=== PATIENT | female | born 1935 | race Caucasian/White ===

== ENCOUNTER 2021-06-21 17:15 | Inpatient (IN) | payer MEDICARE, MEDICAID ==
[~2021-06-21] VITALS: Ht 172.7 cm; Wt 73.0 kg
[~2021-06-21 17:15] MED LIST: ALEN70TA2 PO; ALPR0.5T7 PO; ASCO100C2 PO; CELE200C PO; FELO5TAB3 PO; GABA800T87 PO; MERC50TA PO; METF-371 PO; MORP60TA PO; MULTTAB5 PO; PAROXETINE PO; PREDPOW63 PO; ZOLP10TA PO; [UNRECOGNIZED DRUG - CODE] PO
[2021-06-21] MEDS ORDERED: MIDAZOLAM HCL 5 MG/ML-1ML VIAL ONE (17:20)
[2021-06-21] MEDS ORDERED: SUCCINYLCHOLINE CHLORIDE 20 MG/ML 10ML VIAL IV ONE ×2 (17:20→19:00)
[2021-06-21] MEDS ORDERED: ETOMIDATE (2MG/ML) 20ML VIAL IV ONE ×2 (17:20→17:30)
[2021-06-21] MEDS ORDERED: MIDAZOLAM DRIP 50 mg/50mL 50 ML IV ONE (17:22)
[2021-06-21] MEDS ORDERED: GLUCAGON HYDROCHLORIDE (RDNA) 1 MG VIAL ONE (17:40)
[2021-06-21] MEDS ORDERED: DOPamine 1600MCG/ML D5W 250 ML IV ONE (17:41)
[2021-06-21] MEDS ORDERED: GLUCAGON HYDROCHLORIDE (RDNA) 1 MG VIAL IV ONE (17:45)
[2021-06-21] MEDS ORDERED: ATROPINE SULFATE 1 MG/1 ML VIAL ONE (17:47)
[2021-06-21] MEDS ORDERED: SODIUM BICARBONATE 8.4% INJ 50ML SYRINGE ONE ×2 (17:47→17:56)
[2021-06-21] MEDS: MIDAZOLAM DRIP 50 mg/50mL 50 ML IV SCH (17:49)
[2021-06-21] MEDS ORDERED: ATROPINE SULF 1 MG/10ml SYR IV ONE (18:00)
[2021-06-21] MEDS ORDERED: SODIUM BICARBONATE 8.4 % INJ 50ML VIAL IV ONE ×2 (18:00)
[2021-06-21 18:04] LABS: Basophils # (auto) 0.1 10 ^3/uL (0-0.2); Eosinophils # (auto) 0 10 ^3/uL (0-0.8); Eosinophils % (auto) 0.2 % (0.0-7.0); Monocytes # (auto) 0.6 10 ^3/uL (0-1.3)
[2021-06-21 18:06] LABS: Basophils % (auto) 0.8 % (0.0-2.0); Hematocrit 43.5 % (36.0-46.0); Hemoglobin 13.9 g/dL (12.2-16.2); Lymphocytes # (auto) 0.9 10 ^3/uL (0.4-5.4); Lymphocytes % (auto) 8.1 % (10.0-50.0); Mean Corpuscular Hgb Conc. 31.9 g/dL (32.0-36.0); Mean Corpuscular Volume 100.5 fL (80.0-100.0); Monocytes % (auto) 5.9 % (0.0-12.0); Neutrophils # (auto) 9.1 10 ^3/uL (1.6-8.6); Nucleated Red Blood Cells % 0.1 %; Red Blood Cells 4.33 10^6/uL (4.0-5.20); Red Cell Distribution Width 16.3 % (11.8-14.3); White Blood Cell 10.7 10^3/uL (4.4-10.8)
[2021-06-21 18:19] LABS: Albumin 2.8 g/dL (3.4-5.0); Anion Gap 14 (5-15); Blood Urea Nitrogen 34 mg/dL (7-18); Calcium 9.4 mg/dL (8.5-10.1); Carbon Dioxide 15 mmol/L (21-32); Chloride 100 mmol/L (98-107); Magnesium 2.2 mg/dL (1.6-2.6); Sodium 129 mmol/L (136-145)
[2021-06-21 18:24] LABS: Alanine Aminotransferase 48 U/L (13-56); Aspartate Aminotransferase 49 U/L (15-37); Bilirubin, Total 0.4 mg/dL (0.2-1.0); Blood Alcohol < 3.0 mg/dL (0-5); GFR African American 42 mL/min; GFR Non-African American 35 mL/min; Total Protein 7.4 g/dL (6.4-8.2)
[2021-06-21 18:28] LABS: Alkaline Phosphatase 123 U/L (45-117)
[2021-06-21 18:59] LABS: Amphetamine Screen, Urine NEGATIVE (NEGATIVE); Barbiturate Scree,Urine NEGATIVE (NEGATIVE); Benzodiazephine Screen, Urine POSITIVE (NEGATIVE); Cannabinoid Screen, Urine NEGATIVE (NEGATIVE); Cocaine Screen, Urine NEGATIVE (NEGATIVE); Opiate Scree,Urine NEGATIVE (NEGATIVE); Phencyclidine Screen, Urine NEGATIVE (NEGATIVE)
[2021-06-21 19:01] LABS: Urine Bacteria NONE SEEN /hpf (None Seen); Urine Blood 2+ /uL (Negative); Urine Mucus FEW (None Seen); Urine WBC 3588 /hpf (0 - 5); Urine WBC Clumps PRESENT /hpf (None Seen)
[2021-06-21] MEDS: DOPamine 1600MCG/ML D5W 250 ML IV SCH (19:20)
[2021-06-21 19:33] LABS: BUN/Creatinine Ratio 22.4; Glucose 869 mg/dL (74-106); Potassium 7.6 mmol/L (3.5-5.1)
[2021-06-21] MEDS ORDERED: CALCIUM GLUC 1,000mg/50ml-NS 50 ML IV ONE (19:45)
[2021-06-21] MEDS ORDERED: InsuLIN REG 1unit/0.01ml Soln (100units/ml) IV ONE (19:45)
[2021-06-21] MEDS ORDERED: SODIUM ZIRCONIUM CYCL 10 GM PAK PO ONE (19:45)
[2021-06-21] MEDS ORDERED: VANCOMYCIN 1GM/250ML 250 ML IV ONE (19:45)
[2021-06-21] MEDS ORDERED: DEXTROSE (50%) 50ML SYRG IV ONE (19:45)
[2021-06-21] MEDS ORDERED: SODIUM BICARBONATE 8.4% INJ 50ML SYRINGE IV ONE (19:45)
[2021-06-21] MEDS ORDERED: SODIUM CHLORIDE 0.9% 1,000 ML IV ONE (19:45)
[2021-06-21] MEDS ORDERED: PIPERACILLIN-TAZOB 3.375GM 100 ML IV ONE (19:45)
[2021-06-21 19:49] VITALS: BP 117/63
[2021-06-21 20:06] VITALS: BP 108/63
[2021-06-21 20:17] LABS: INR 1.33 (0.9-1.15); Partial Thromboplastin Time 24.4 sec (23.6-33.0)
[2021-06-21 20:29] VITALS: BP 108/63
[2021-06-21] MEDS ORDERED: MEROPENEM 1GM IVPB 100 ML IV ONE ×2 (21:00)
[2021-06-21 22:19] VITALS: BP 108/63
[2021-06-21] MEDS ORDERED: ONDANSETRON HCL 4 MG/2 ML VIAL IV PRN (22:45)
[2021-06-21] MEDS ORDERED: DEXTROSE (50%) 50ML SYRG IV PRN (22:45)
[2021-06-21] MEDS ORDERED: VANCOMYCIN PER PHARMACY 0 MG IV SCH (22:45)
[2021-06-21] MEDS ORDERED: MORPHINE SULFATE INJECTION 2 MG/ML SYRG IV PRN (22:45)
[2021-06-21] MEDS ORDERED: NITROGLYCERIN 0.4 MG SL TAB SL PRN (22:45)
[2021-06-21] MEDS ORDERED: ALBUMIN 25% 50 ML IV ONE (22:45)
[2021-06-21 22:59] LABS: Calcium 9.2 mg/dL (8.5-10.1); Potassium 5.5 mmol/L (3.5-5.1)
[2021-06-21 23:08] LABS: BUN/Creatinine Ratio 22.8
[2021-06-22] VITALS (58 sets, daily range): BP systolic 56–167; BP diastolic 24–88
[2021-06-22] MEDS: ACCU-CHEK COMFORT CURVE STRIP VI SCH ×12 (00:13→22:28)
[2021-06-22] MEDS: InsuLIN REG 1unit/0.01ml Soln (100units/ml) SC SCH ×7 (00:17→20:22)
[2021-06-22] MEDS: SODIUM CHLORIDE 0.9% 1,000 ML IV SCH ×3 (00:22→23:00)
[2021-06-22] MEDS: DOPamine 1600MCG/ML D5W 250 ML IV SCH ×3 (03:12→22:20)
[2021-06-22] MEDS: MIDAZOLAM DRIP 50 mg/50mL 50 ML IV SCH ×3 (03:55→21:00)
[2021-06-22] MEDS ORDERED: DEXTROSE (50%) 50ML SYRG IV PRN (04:30)
[2021-06-22] MEDS: INSULIN LANTUS (GLARGINE) 1 /0.01ml (100units/ml) SC SCH ×4 (04:36→22:27)
[2021-06-22 04:44] LABS: Basophils # (auto) 0.1 10 ^3/uL (0-0.2); Basophils % (auto) 0.6 % (0.0-2.0); Eosinophils # (auto) 0 10 ^3/uL (0-0.8); Hematocrit 41.2 % (36.0-46.0); Lymphocytes # (auto) 0.6 10 ^3/uL (0.4-5.4); Lymphocytes % (auto) 4.7 % (10.0-50.0); Mean Corpuscular Hemoglobin 32.8 pg (28.0-32.0); Mean Corpuscular Hgb Conc. 33.9 g/dL (32.0-36.0); Mean Corpuscular Volume 96.6 fL (80.0-100.0); Monocytes # (auto) 1.1 10 ^3/uL (0-1.3); Monocytes % (auto) 8.4 % (0.0-12.0); Neutrophils # (auto) 10.9 10 ^3/uL (1.6-8.6); Neutrophils % (auto) 86.3 % (37.0-80.0); Red Blood Cells 4.26 10^6/uL (4.0-5.20); Red Cell Distribution Width 15.6 % (11.8-14.3); White Blood Cell 12.6 10^3/uL (4.4-10.8)
[2021-06-22 04:57] LABS: Lactic Acid w/Reflex 4.1 mmol/L (0.4-2.0)
[2021-06-22 05:15] LABS: BUN/Creatinine Ratio 23.8; Bilirubin, Total 0.4 mg/dL (0.2-1.0); Calcium 9.9 mg/dL (8.5-10.1)
[2021-06-22] MEDS ORDERED: MEROPENEM 1GM IVPB 100 ML IV SCH (06:00)
[2021-06-22] MEDS ORDERED: INSULIN LANTUS (GLARGINE) 1 /0.01ml (100units/ml) SC SCH (07:00)
[2021-06-22] MEDS: FUROSEMIDE 20 MG/2 ML VIAL IV SCH (11:10)
[2021-06-22] MEDS: FAMOTIDINE (10MG/ML) 2ML VL IV SCH (11:10)
[2021-06-22] MEDS: HEPARIN SODIUM (PORCINE) 5000 UNITS/ML 1ML VIAL SC SCH ×2 (11:10→22:00)
[2021-06-22] MEDS: MEROPENEM 1GM IVPB 100 ML IV SCH (18:00)
[2021-06-22] MEDS ORDERED: NOREPINEPHRINE 8 MG/250ML KIT 250 ML IV ONE (20:28)
[2021-06-22] MEDS: PHENYLEPHRINE IV 250 ML IV SCH (20:45)
[2021-06-22] MEDS: NOREPINEPHRINE 8 MG/250ML KIT 250 ML IV SCH (20:45)
[2021-06-22] MEDS: VANCOMYCIN 750mg/250ml 250 ML IV SCH (22:00)
[2021-06-22] MEDS: NYSTATIN TOPICAL POWDER 15GM TOP SCH (22:27)
[2021-06-22] MEDS ORDERED: VANCOMYCIN 1GM/250ML 250 ML IV ONE (22:55)
[2021-06-23] VITALS (86 sets, daily range): BP systolic 29–158; BP diastolic 11–78
[2021-06-23] MEDS: DOPamine 1600MCG/ML D5W 250 ML IV SCH ×2 (02:00→20:00)
[2021-06-23] MEDS: MIDAZOLAM DRIP 50 mg/50mL 50 ML IV SCH ×3 (02:58→20:00)
[2021-06-23] MEDS: InsuLIN REG 1unit/0.01ml Soln (100units/ml) SC SCH ×5 (04:00→17:46)
[2021-06-23] MEDS: ACETAMINOPHEN 650 MG RECT SUPP PR PRN ×2 (04:20→15:19)
[2021-06-23] MEDS: PHENYLEPHRINE IV 250 ML IV SCH ×2 (05:05→13:25)
[2021-06-23] MEDS: MEROPENEM 1GM IVPB 100 ML IV SCH ×2 (06:27→18:00)
[2021-06-23] MEDS: INSULIN LANTUS (GLARGINE) 1 /0.01ml (100units/ml) SC SCH ×3 (06:28→22:00)
[2021-06-23 11:05] LABS: Basophils # (auto) 0.1 10 ^3/uL (0-0.2); Basophils % (auto) 0.5 % (0.0-2.0); Eosinophils # (auto) 0 10 ^3/uL (0-0.8); Eosinophils % (auto) 0.3 % (0.0-7.0); Hematocrit 43.6 % (36.0-46.0); Hemoglobin 15.1 g/dL (12.2-16.2); Lymphocytes # (auto) 0.7 10 ^3/uL (0.4-5.4); Lymphocytes % (auto) 7.2 % (10.0-50.0); Mean Corpuscular Hemoglobin 32.6 pg (28.0-32.0); Mean Corpuscular Hgb Conc. 34.5 g/dL (32.0-36.0); Mean Corpuscular Volume 94.5 fL (80.0-100.0); Monocytes # (auto) 0.8 10 ^3/uL (0-1.3); Monocytes % (auto) 7.4 % (0.0-12.0); Neutrophils # (auto) 8.7 10 ^3/uL (1.6-8.6); Neutrophils % (auto) 84.6 % (37.0-80.0); Red Blood Cells 4.61 10^6/uL (4.0-5.20); Red Cell Distribution Width 15.5 % (11.8-14.3); White Blood Cell 10.3 10^3/uL (4.4-10.8)
[2021-06-23 11:23] LABS: BUN/Creatinine Ratio 35.3; Calcium 8.9 mg/dL (8.5-10.1); Potassium 4.5 mmol/L (3.5-5.1)
[2021-06-23] MEDS: FUROSEMIDE 20 MG/2 ML VIAL IV SCH (11:58)
[2021-06-23] MEDS: FAMOTIDINE (10MG/ML) 2ML VL IV SCH (11:58)
[2021-06-23] MEDS: NYSTATIN TOPICAL POWDER 15GM TOP SCH ×2 (11:59→22:00)
[2021-06-23] MEDS: HEPARIN SODIUM (PORCINE) 5000 UNITS/ML 1ML VIAL SC SCH ×2 (12:00→22:00)
[2021-06-23] MEDS ORDERED: InsuLIN REG 1unit/0.01ml Soln (100units/ml) SC SCH (12:30)
[2021-06-23] MEDS ORDERED: DEXTROSE (50%) 50ML SYRG IV PRN (15:15)
[2021-06-23] MEDS: ACCU-CHEK COMFORT CURVE STRIP VI SCH (17:46)
[2021-06-23] MEDS: VANCOMYCIN 750mg/250ml 250 ML IV SCH (22:00)
[2021-06-24] VITALS (101 sets, daily range): BP systolic 71–130; BP diastolic 24–99
[2021-06-24] MEDS: ACCU-CHEK COMFORT CURVE STRIP VI SCH ×4 (00:18→18:26)
[2021-06-24] MEDS: InsuLIN REG 1unit/0.01ml Soln (100units/ml) SC SCH ×4 (00:19→18:26)
[2021-06-24 05:31] LABS: Basophils # (auto) 0.1 10 ^3/uL (0-0.2); Basophils % (auto) 0.9 % (0.0-2.0); Eosinophils # (auto) 0.1 10 ^3/uL (0-0.8); Eosinophils % (auto) 0.9 % (0.0-7.0); Hematocrit 37.5 % (36.0-46.0); Hemoglobin 13.1 g/dL (12.2-16.2); Lymphocytes # (auto) 0.9 10 ^3/uL (0.4-5.4); Lymphocytes % (auto) 11.5 % (10.0-50.0); Mean Corpuscular Hemoglobin 32.5 pg (28.0-32.0); Mean Corpuscular Hgb Conc. 34.8 g/dL (32.0-36.0); Mean Corpuscular Volume 93.3 fL (80.0-100.0); Monocytes # (auto) 0.4 10 ^3/uL (0-1.3); Monocytes % (auto) 5.2 % (0.0-12.0); Neutrophils # (auto) 6.2 10 ^3/uL (1.6-8.6); Neutrophils % (auto) 81.5 % (37.0-80.0); Nucleated Red Blood Cells % 0.1 %; Red Blood Cells 4.03 10^6/uL (4.0-5.20); Red Cell Distribution Width 15.1 % (11.8-14.3); White Blood Cell 7.6 10^3/uL (4.4-10.8)
[2021-06-24 05:58] LABS: Potassium 3.4 mmol/L (3.5-5.1)
[2021-06-24] MEDS: MEROPENEM 1GM IVPB 100 ML IV SCH (06:00)
[2021-06-24 06:03] LABS: Calcium 8.3 mg/dL (8.5-10.1)
[2021-06-24] MEDS: INSULIN LANTUS (GLARGINE) 1 /0.01ml (100units/ml) SC SCH ×2 (07:00→22:00)
[2021-06-24] MEDS: DOPamine 1600MCG/ML D5W 250 ML IV SCH (07:25)
[2021-06-24] MEDS: NOREPINEPHRINE 8 MG/250ML KIT 250 ML IV SCH (08:32)
[2021-06-24] MEDS: PHENYLEPHRINE IV 250 ML IV SCH (08:46)
[2021-06-24] MEDS: SODIUM CHLORIDE 0.9% 1,000 ML IV SCH ×2 (08:46→10:01)
[2021-06-24] MEDS: FUROSEMIDE 20 MG/2 ML VIAL IV SCH (09:31)
[2021-06-24] MEDS: FAMOTIDINE (10MG/ML) 2ML VL IV SCH (09:31)
[2021-06-24] MEDS: HEPARIN SODIUM (PORCINE) 5000 UNITS/ML 1ML VIAL SC SCH ×2 (09:32→22:00)
[2021-06-24] MEDS: NYSTATIN TOPICAL POWDER 15GM TOP SCH ×2 (09:33→22:00)
[2021-06-24] MEDS ORDERED: POTASSIUM CHL 20MEQ/50ML 50 ML IV ONE (10:00)
[2021-06-24] MEDS ORDERED: Glucerna 1.2 Cal 1Liter BOTTLE GT SCH (14:00)
[2021-06-24] MEDS ORDERED: CRAN450T PO (15:32)
[2021-06-24] MEDS ORDERED: VITA400C49 PO (15:32)
[2021-06-24] MEDS ORDERED: ZINC220C8 PO (15:32)
[2021-06-24] MEDS ORDERED: PERCOT PO (15:32)
[2021-06-24] MEDS ORDERED: LISI-716 PO (15:32)
[2021-06-24] MEDS ORDERED: SITA100T7 PO (15:32)
[2021-06-24] MEDS ORDERED: POLYSOL EACHEYE (15:32)
[2021-06-24] MEDS ORDERED: ASCO500T11 PO (15:32)
[2021-06-24] MEDS ORDERED: GLIP10TA9 PO (15:32)
[2021-06-24] MEDS ORDERED: LACT1CAP14 PO (15:32)
[2021-06-24] MEDS ORDERED: WARF5TAB71 PO (15:32)
[2021-06-24] MEDS ORDERED: TETR0.0542 EACHEYE (15:32)
[2021-06-24] MEDS: VANCOMYCIN 1GM/250ML 250 ML IV SCH (22:56)
[2021-06-25] VITALS (95 sets, daily range): BP systolic 92–163; BP diastolic 36–100
[2021-06-25] MEDS: InsuLIN REG 1unit/0.01ml Soln (100units/ml) SC SCH ×5 (00:18→23:43)
[2021-06-25] MEDS: ACCU-CHEK COMFORT CURVE STRIP VI SCH ×5 (00:18→23:44)
[2021-06-25] MEDS: DOPamine 1600MCG/ML D5W 250 ML IV SCH ×2 (01:30→14:46)
[2021-06-25 04:21] LABS: Basophils # (auto) 0 10 ^3/uL (0-0.2); Basophils % (auto) 0.4 % (0.0-2.0); Eosinophils # (auto) 0.1 10 ^3/uL (0-0.8); Eosinophils % (auto) 0.7 % (0.0-7.0); Hematocrit 37.2 % (36.0-46.0); Hemoglobin 12.8 g/dL (12.2-16.2); Lymphocytes # (auto) 1.1 10 ^3/uL (0.4-5.4); Lymphocytes % (auto) 12.3 % (10.0-50.0); Mean Corpuscular Hemoglobin 32.1 pg (28.0-32.0); Mean Corpuscular Hgb Conc. 34.4 g/dL (32.0-36.0); Mean Corpuscular Volume 93.2 fL (80.0-100.0); Monocytes # (auto) 0.6 10 ^3/uL (0-1.3); Monocytes % (auto) 6.6 % (0.0-12.0); Neutrophils # (auto) 6.9 10 ^3/uL (1.6-8.6); Red Blood Cells 3.99 10^6/uL (4.0-5.20); Red Cell Distribution Width 15.4 % (11.8-14.3); White Blood Cell 8.6 10^3/uL (4.4-10.8)
[2021-06-25 04:36] LABS: Calcium 8.6 mg/dL (8.5-10.1); Potassium 3.4 mmol/L (3.5-5.1)
[2021-06-25 04:38] LABS: BUN/Creatinine Ratio 32.5
[2021-06-25] MEDS: INSULIN LANTUS (GLARGINE) 1 /0.01ml (100units/ml) SC SCH ×2 (07:03→22:00)
[2021-06-25] MEDS: cefTRIAXone 1GM/50ML D5W 50 ML IV SCH (09:44)
[2021-06-25] MEDS: NYSTATIN TOPICAL POWDER 15GM TOP SCH ×2 (10:53→21:54)
[2021-06-25] MEDS: FAMOTIDINE (10MG/ML) 2ML VL IV SCH (11:02)
[2021-06-25] MEDS: HEPARIN SODIUM (PORCINE) 5000 UNITS/ML 1ML VIAL SC SCH ×2 (11:03→21:54)
[2021-06-25] MEDS ORDERED: EPINEPHrine HCL 0.5 ML NEB NEB ONE (14:30)
[2021-06-25] MEDS ORDERED: EPINEPHrine HCL 0.5 ML NEB ONE (14:32)
[2021-06-25] MEDS: MORPHINE SULFATE INJECTION 2 MG/ML SYRG IV PRN (19:25)
[2021-06-25] MEDS: VANCOMYCIN 1GM/250ML 250 ML IV SCH (21:53)
[2021-06-26] VITALS (20 sets, daily range): BP systolic 132–163; BP diastolic 42–90
[2021-06-26] MEDS: DOPamine 1600MCG/ML D5W 250 ML IV SCH (00:15)
[2021-06-26 04:32] LABS: Basophils # (auto) 0 10 ^3/uL (0-0.2); Basophils % (auto) 0.6 % (0.0-2.0); Eosinophils # (auto) 0 10 ^3/uL (0-0.8); Eosinophils % (auto) 0.6 % (0.0-7.0); Hematocrit 38.2 % (36.0-46.0); Hemoglobin 13.1 g/dL (12.2-16.2); Lymphocytes # (auto) 0.9 10 ^3/uL (0.4-5.4); Lymphocytes % (auto) 10.7 % (10.0-50.0); Mean Corpuscular Hgb Conc. 34.2 g/dL (32.0-36.0); Mean Corpuscular Volume 93.4 fL (80.0-100.0); Monocytes # (auto) 0.5 10 ^3/uL (0-1.3); Monocytes % (auto) 6.8 % (0.0-12.0); Neutrophils # (auto) 6.5 10 ^3/uL (1.6-8.6); Neutrophils % (auto) 81.3 % (37.0-80.0); Nucleated Red Blood Cells % 0.1 %; Red Blood Cells 4.09 10^6/uL (4.0-5.20); Red Cell Distribution Width 14.9 % (11.8-14.3)
[2021-06-26] MEDS: InsuLIN REG 1unit/0.01ml Soln (100units/ml) SC SCH ×4 (05:29→23:57)
[2021-06-26] MEDS: ACCU-CHEK COMFORT CURVE STRIP VI SCH ×4 (05:29→23:56)
[2021-06-26 05:46] LABS: Potassium 2.8 mmol/L (3.5-5.1)
[2021-06-26] MEDS: INSULIN LANTUS (GLARGINE) 1 /0.01ml (100units/ml) SC SCH (06:32)
[2021-06-26] MEDS: POTASSIUM CHL 20MEQ/50ML 50 ML IV SCH ×3 (06:55→11:52)
[2021-06-26] MEDS: FAMOTIDINE (10MG/ML) 2ML VL IV SCH (09:34)
[2021-06-26] MEDS: HEPARIN SODIUM (PORCINE) 5000 UNITS/ML 1ML VIAL SC SCH ×2 (09:34→22:25)
[2021-06-26] MEDS: NYSTATIN TOPICAL POWDER 15GM TOP SCH ×2 (09:35→22:26)
[2021-06-26] MEDS: cefTRIAXone 1GM/50ML D5W 50 ML IV SCH (09:40)
[2021-06-26] MEDS ORDERED: LISINOPRIL 10 MG TAB PO ONE (11:45)
[2021-06-26] MEDS ORDERED: ASPirin 81 mg TAB PO ONE (11:45)
[2021-06-26] MEDS: MORPHINE SULFATE INJECTION 2 MG/ML SYRG IV PRN (13:05)
[2021-06-26] MEDS: Glucerna Carbsteady SHAKE Vanilla 8oz PO SCH ×2 (14:25→18:00)
[2021-06-26] MEDS: VANCOMYCIN 1GM/250ML 250 ML IV SCH (22:24)
[2021-06-27 05:00] VITALS: BP 128/78
[2021-06-27 05:50] LABS: Basophils # (auto) 0 10 ^3/uL (0-0.2); Basophils % (auto) 0.5 % (0.0-2.0); Eosinophils # (auto) 0 10 ^3/uL (0-0.8); Eosinophils % (auto) 0.1 % (0.0-7.0); Hematocrit 40.6 % (36.0-46.0); Lymphocytes % (auto) 10.4 % (10.0-50.0); Mean Corpuscular Hemoglobin 32.4 pg (28.0-32.0); Mean Corpuscular Hgb Conc. 34.6 g/dL (32.0-36.0); Mean Corpuscular Volume 93.7 fL (80.0-100.0); Monocytes # (auto) 0.9 10 ^3/uL (0-1.3); Monocytes % (auto) 9.3 % (0.0-12.0); Neutrophils # (auto) 7.4 10 ^3/uL (1.6-8.6); Neutrophils % (auto) 79.7 % (37.0-80.0); Nucleated Red Blood Cells % 0.1 %; Red Blood Cells 4.33 10^6/uL (4.0-5.20); Red Cell Distribution Width 15.2 % (11.8-14.3); White Blood Cell 9.3 10^3/uL (4.4-10.8)
[2021-06-27 05:59] LABS: Potassium 3.1 mmol/L (3.5-5.1)
[2021-06-27 06:12] LABS: BUN/Creatinine Ratio 18.9; Calcium 9.5 mg/dL (8.5-10.1); Magnesium 1.8 mg/dL (1.6-2.6)
[2021-06-27] MEDS: ACCU-CHEK COMFORT CURVE STRIP VI SCH ×3 (06:36→18:08)
[2021-06-27] MEDS: InsuLIN REG 1unit/0.01ml Soln (100units/ml) SC SCH ×3 (06:42→18:08)
[2021-06-27] MEDS: Glucerna Carbsteady SHAKE Vanilla 8oz PO SCH ×3 (08:00→16:49)
[2021-06-27] MEDS: ASPirin 81 mg TAB PO SCH (08:44)
[2021-06-27] MEDS: FLORASTOR (S. BOULARDII) 250 MG CAP PO SCH (08:44)
[2021-06-27] MEDS: FAMOTIDINE (10MG/ML) 2ML VL IV SCH (08:44)
[2021-06-27] MEDS: cefTRIAXone 1GM/50ML D5W 50 ML IV SCH (08:44)
[2021-06-27] MEDS: LISINOPRIL 10 MG TAB PO SCH (08:46)
[2021-06-27] MEDS: HEPARIN SODIUM (PORCINE) 5000 UNITS/ML 1ML VIAL SC SCH (08:48)
[2021-06-27] MEDS: NYSTATIN TOPICAL POWDER 15GM TOP SCH ×2 (08:48→22:10)
[2021-06-27 09:00] VITALS: BP 148/70
[2021-06-27 12:49] VITALS: BP 133/71
[2021-06-27] MEDS ORDERED: POTASSIUM CHL 20 Meq TABLET PO ONE (15:00)
[2021-06-27] MEDS ORDERED: KETOROLAC TROMETH 30 MG/ML 1ML VIAL IV ONE (15:00)
[2021-06-27 16:35] VITALS: BP 158/63
[2021-06-27 17:00] LABS: INR 1.16 (0.9-1.15)
[2021-06-27] MEDS ORDERED: WARFARIN SODIUM 5 MG TAB PO ONE (18:30)
[2021-06-27 22:00] VITALS: BP 151/71
[2021-06-27] MEDS ORDERED: ENOXAPARIN SOD 80 MG/0.8ML SYRINGE SC SCH (22:00)
[2021-06-27] MEDS: VANCOMYCIN 1GM/250ML 250 ML IV SCH (22:09)
[2021-06-27] MEDS: MORPHINE SULFATE INJECTION 2 MG/ML SYRG IV PRN (23:50)
[2021-06-28] MEDS: ACCU-CHEK COMFORT CURVE STRIP VI SCH ×4 (00:17→17:23)
[2021-06-28 05:00] VITALS: BP 145/53
[2021-06-28] MEDS: InsuLIN REG 1unit/0.01ml Soln (100units/ml) SC SCH ×4 (06:00→17:23)
[2021-06-28 06:25] LABS: Basophils # (auto) 0 10 ^3/uL (0-0.2); Basophils % (auto) 0.5 % (0.0-2.0); Eosinophils # (auto) 0.1 10 ^3/uL (0-0.8); Eosinophils % (auto) 0.7 % (0.0-7.0); Hematocrit 35.3 % (36.0-46.0); Hemoglobin 12.3 g/dL (12.2-16.2); Lymphocytes # (auto) 1.1 10 ^3/uL (0.4-5.4); Lymphocytes % (auto) 14.3 % (10.0-50.0); Mean Corpuscular Hemoglobin 32.3 pg (28.0-32.0); Mean Corpuscular Hgb Conc. 34.8 g/dL (32.0-36.0); Mean Corpuscular Volume 92.9 fL (80.0-100.0); Monocytes # (auto) 0.8 10 ^3/uL (0-1.3); Monocytes % (auto) 11.2 % (0.0-12.0); Neutrophils # (auto) 5.5 10 ^3/uL (1.6-8.6); Neutrophils % (auto) 73.3 % (37.0-80.0); White Blood Cell 7.5 10^3/uL (4.4-10.8)
[2021-06-28 06:28] LABS: INR 1.2 (0.9-1.15)
[2021-06-28] MEDS: Glucerna Carbsteady SHAKE Vanilla 8oz PO SCH ×3 (08:00→17:23)
[2021-06-28 08:37] VITALS: BP 152/88
[2021-06-28] MEDS: cefTRIAXone 1GM/50ML D5W 50 ML IV SCH (10:25)
[2021-06-28] MEDS: LISINOPRIL 10 MG TAB PO SCH (10:25)
[2021-06-28] MEDS: FAMOTIDINE 20 MG TAB PO SCH (10:26)
[2021-06-28] MEDS: ASPirin 81 mg TAB PO SCH (10:26)
[2021-06-28] MEDS: FLORASTOR (S. BOULARDII) 250 MG CAP PO SCH (10:26)
[2021-06-28] MEDS: NYSTATIN TOPICAL POWDER 15GM TOP SCH ×2 (10:27→21:57)
[2021-06-28] MEDS: MORPHINE SULFATE INJECTION 2 MG/ML SYRG IV PRN (10:27)
[2021-06-28 13:00] VITALS: BP 156/77
[2021-06-28] MEDS ORDERED: MORPHINE SULFATE INJECTION 2 MG/ML SYRG IV PRN (14:45)
[2021-06-28 17:00] VITALS: BP 155/98
[2021-06-28] MEDS ORDERED: WARFARIN SODIUM 5 MG TAB PO ONE (17:00)
[2021-06-28] MEDS: VANCOMYCIN 1GM/250ML 250 ML IV SCH (21:57)
[2021-06-28 22:00] VITALS: BP 138/61
[2021-06-29] MEDS: ACCU-CHEK COMFORT CURVE STRIP VI SCH ×4 (00:05→17:49)
[2021-06-29] MEDS: InsuLIN REG 1unit/0.01ml Soln (100units/ml) SC SCH ×4 (00:06→17:50)
[2021-06-29 05:00] VITALS: BP 117/51
[2021-06-29 07:41] LABS: Basophils # (auto) 0.1 10 ^3/uL (0-0.2); Basophils % (auto) 1.3 % (0.0-2.0); Eosinophils # (auto) 0.1 10 ^3/uL (0-0.8); Eosinophils % (auto) 1.7 % (0.0-7.0); Hematocrit 36.2 % (36.0-46.0); Hemoglobin 12.3 g/dL (12.2-16.2); Lymphocytes # (auto) 0.9 10 ^3/uL (0.4-5.4); Mean Corpuscular Volume 94.2 fL (80.0-100.0); Monocytes # (auto) 0.6 10 ^3/uL (0-1.3); Monocytes % (auto) 8.8 % (0.0-12.0); Neutrophils # (auto) 5.4 10 ^3/uL (1.6-8.6); Neutrophils % (auto) 76.2 % (37.0-80.0); Nucleated Red Blood Cells % 0.1 %; Red Blood Cells 3.84 10^6/uL (4.0-5.20); Red Cell Distribution Width 15.2 % (11.8-14.3); White Blood Cell 7.1 10^3/uL (4.4-10.8)
[2021-06-29 07:58] LABS: INR 1.51 (0.9-1.15); Partial Thromboplastin Time 29.5 sec (23.6-33.0)
[2021-06-29 08:14] LABS: Calcium 9.1 mg/dL (8.5-10.1)
[2021-06-29 08:17] LABS: BUN/Creatinine Ratio 29.6
[2021-06-29 08:21] LABS: Potassium 2.9 mmol/L (3.5-5.1)
[2021-06-29 09:00] VITALS: BP 137/58
[2021-06-29] MEDS: Glucerna Carbsteady SHAKE Vanilla 8oz PO SCH ×3 (09:34→17:49)
[2021-06-29] MEDS: cefTRIAXone 1GM/50ML D5W 50 ML IV SCH (09:35)
[2021-06-29] MEDS: ASPirin 81 mg TAB PO SCH (09:35)
[2021-06-29] MEDS: FLORASTOR (S. BOULARDII) 250 MG CAP PO SCH (09:36)
[2021-06-29] MEDS: FAMOTIDINE 20 MG TAB PO SCH (09:37)
[2021-06-29] MEDS: LISINOPRIL 20 MG TAB PO SCH (09:37)
[2021-06-29] MEDS: POTASSIUM CHL 20MEQ/50ML 50 ML IV SCH ×3 (12:34→18:05)
[2021-06-29] MEDS: NYSTATIN TOPICAL POWDER 15GM TOP SCH ×2 (12:34→22:28)
[2021-06-29 12:53] VITALS: BP 143/69
[2021-06-29] MEDS ORDERED: POTASSIUM CHL 20MEQ/50ML 50 ML IV ONE (15:44)
[2021-06-29 16:45] VITALS: BP 124/44
[2021-06-29] MEDS ORDERED: WARFARIN SODIUM 5 MG TAB PO ONE (17:00)
[2021-06-29] MEDS: VANCOMYCIN 1GM/250ML 250 ML IV SCH (17:49)
[2021-06-29] MEDS: HYDROcodone-ACET 5/325MG TAB PO PRN (18:27)
[2021-06-29 21:20] VITALS: BP 105/44
[2021-06-30] MEDS: ACCU-CHEK COMFORT CURVE STRIP VI SCH ×4 (00:09→17:32)
[2021-06-30] MEDS: InsuLIN REG 1unit/0.01ml Soln (100units/ml) SC SCH ×4 (00:16→17:33)
[2021-06-30 05:36] VITALS: BP 141/61
[2021-06-30 07:03] LABS: Basophils # (auto) 0.1 10 ^3/uL (0-0.2); Eosinophils # (auto) 0.2 10 ^3/uL (0-0.8); Eosinophils % (auto) 2.8 % (0.0-7.0); Hematocrit 36.1 % (36.0-46.0); Hemoglobin 12.2 g/dL (12.2-16.2); Lymphocytes # (auto) 1.2 10 ^3/uL (0.4-5.4); Lymphocytes % (auto) 20.8 % (10.0-50.0); Mean Corpuscular Hemoglobin 31.6 pg (28.0-32.0); Mean Corpuscular Hgb Conc. 33.8 g/dL (32.0-36.0); Mean Corpuscular Volume 93.5 fL (80.0-100.0); Monocytes # (auto) 0.7 10 ^3/uL (0-1.3); Monocytes % (auto) 11.8 % (0.0-12.0); Neutrophils # (auto) 3.5 10 ^3/uL (1.6-8.6); Neutrophils % (auto) 63.6 % (37.0-80.0); Nucleated Red Blood Cells % 0.1 %; Red Blood Cells 3.85 10^6/uL (4.0-5.20); Red Cell Distribution Width 14.6 % (11.8-14.3); White Blood Cell 5.5 10^3/uL (4.4-10.8)
[2021-06-30 07:18] LABS: INR 1.54 (0.9-1.15); Partial Thromboplastin Time 30.9 sec (23.6-33.0)
[2021-06-30 07:23] LABS: Calcium 9.7 mg/dL (8.5-10.1); Potassium 3.7 mmol/L (3.5-5.1)
[2021-06-30 07:30] LABS: BUN/Creatinine Ratio 20.5; Bilirubin, Total 0.3 mg/dL (0.2-1.0); Total Protein 7.1 g/dL (6.4-8.2)
[2021-06-30] MEDS: Glucerna Carbsteady SHAKE Vanilla 8oz PO SCH ×3 (07:56→17:15)
[2021-06-30 09:00] VITALS: BP 141/73
[2021-06-30] MEDS: FLORASTOR (S. BOULARDII) 250 MG CAP PO SCH (09:38)
[2021-06-30] MEDS: ASPirin 81 mg TAB PO SCH (09:38)
[2021-06-30] MEDS: cefTRIAXone 1GM/50ML D5W 50 ML IV SCH (09:38)
[2021-06-30] MEDS: FAMOTIDINE 20 MG TAB PO SCH (09:39)
[2021-06-30] MEDS: LISINOPRIL 20 MG TAB PO SCH (09:39)
[2021-06-30] MEDS: NYSTATIN TOPICAL POWDER 15GM TOP SCH ×2 (09:39→22:27)
[2021-06-30] MEDS: HYDROcodone-ACET 5/325MG TAB PO PRN ×2 (10:51→17:41)
[2021-06-30 13:00] VITALS: BP 121/60
[2021-06-30] MEDS: VANCOMYCIN 1GM/250ML 250 ML IV SCH (13:55)
[2021-06-30 17:00] VITALS: BP 151/68
[2021-06-30] MEDS ORDERED: WARFARIN SODIUM 2 MG TAB PO ONE (17:00)
[2021-07-01 05:00] VITALS: BP 130/70
[2021-07-01 05:25] LABS: Basophils # (auto) 0.1 10 ^3/uL (0-0.2); Basophils % (auto) 1.1 % (0.0-2.0); Eosinophils # (auto) 0.2 10 ^3/uL (0-0.8); Eosinophils % (auto) 3.4 % (0.0-7.0); Hematocrit 37.3 % (36.0-46.0); Hemoglobin 12.5 g/dL (12.2-16.2); Lymphocytes # (auto) 1.4 10 ^3/uL (0.4-5.4); Lymphocytes % (auto) 27.1 % (10.0-50.0); Mean Corpuscular Hemoglobin 31.8 pg (28.0-32.0); Mean Corpuscular Hgb Conc. 33.5 g/dL (32.0-36.0); Monocytes # (auto) 0.5 10 ^3/uL (0-1.3); Monocytes % (auto) 9.3 % (0.0-12.0); Neutrophils # (auto) 3.1 10 ^3/uL (1.6-8.6); Neutrophils % (auto) 59.1 % (37.0-80.0); Red Blood Cells 3.93 10^6/uL (4.0-5.20); Red Cell Distribution Width 14.7 % (11.8-14.3); White Blood Cell 5.3 10^3/uL (4.4-10.8)
[2021-07-01 05:39] LABS: INR 1.77 (0.9-1.15)
[2021-07-01 05:54] LABS: Potassium 4.2 mmol/L (3.5-5.1)
[2021-07-01 05:59] LABS: BUN/Creatinine Ratio 21.2; Bilirubin, Total 0.3 mg/dL (0.2-1.0); Calcium 9.3 mg/dL (8.5-10.1); Total Protein 7.3 g/dL (6.4-8.2)
[2021-07-01] MEDS: ACCU-CHEK COMFORT CURVE STRIP VI SCH ×4 (06:19→18:00)
[2021-07-01] MEDS: InsuLIN REG 1unit/0.01ml Soln (100units/ml) SC SCH ×4 (06:21→18:00)
[2021-07-01 08:00] VITALS: BP 158/79
[2021-07-01] MEDS: Glucerna Carbsteady SHAKE Vanilla 8oz PO SCH ×3 (08:00→18:00)
[2021-07-01] MEDS: cefTRIAXone 1GM/50ML D5W 50 ML IV SCH (10:04)
[2021-07-01] MEDS: FAMOTIDINE 20 MG TAB PO SCH (10:05)
[2021-07-01] MEDS: FLORASTOR (S. BOULARDII) 250 MG CAP PO SCH (10:05)
[2021-07-01] MEDS: ASPirin 81 mg TAB PO SCH (10:05)
[2021-07-01] MEDS: LISINOPRIL 20 MG TAB PO SCH (10:06)
[2021-07-01] MEDS: NYSTATIN TOPICAL POWDER 15GM TOP SCH ×2 (10:06→21:18)
[2021-07-01 12:00] VITALS: BP 146/68
[2021-07-01] MEDS: HYDROcodone-ACET 5/325MG TAB PO PRN (12:05)
[2021-07-01] MEDS: VANCOMYCIN 1GM/250ML 250 ML IV SCH (12:20)
[2021-07-01 16:00] VITALS: BP 115/77
[2021-07-01] MEDS ORDERED: WARFARIN SODIUM 2.5 MG TAB PO ONE (17:00)
[2021-07-01] MEDS: glipiZIDE 5 MG TAB PO SCH (18:00)
[2021-07-01 22:00] VITALS: BP 152/63
[2021-07-02] MEDS: HYDROcodone-ACET 5/325MG TAB PO PRN ×2 (00:50→11:37)
[2021-07-02 05:00] VITALS: BP 148/81
[2021-07-02] MEDS: ACCU-CHEK COMFORT CURVE STRIP VI SCH ×3 (06:23→11:38)
[2021-07-02] MEDS: InsuLIN REG 1unit/0.01ml Soln (100units/ml) SC SCH ×3 (06:30→12:00)
[2021-07-02] MEDS: glipiZIDE 5 MG TAB PO SCH (06:37)
[2021-07-02] MEDS: Glucerna Carbsteady SHAKE Vanilla 8oz PO SCH ×2 (08:00→11:40)
[2021-07-02] MEDS: cefTRIAXone 1GM/50ML D5W 50 ML IV SCH (08:25)
[2021-07-02 09:00] VITALS: BP 148/85
[2021-07-02] MEDS: FLORASTOR (S. BOULARDII) 250 MG CAP PO SCH (10:00)
[2021-07-02] MEDS: NYSTATIN TOPICAL POWDER 15GM TOP SCH (10:00)
[2021-07-02] MEDS: LISINOPRIL 20 MG TAB PO SCH (10:00)
[2021-07-02] MEDS: FAMOTIDINE 20 MG TAB PO SCH (10:00)
[2021-07-02 11:28] LABS: INR 2.5 (0.9-1.15)
[2021-07-02 13:22] VITALS: BP 140/77
[2021-07-02] MEDS ORDERED: WARFARIN SODIUM 2 MG TAB PO ONE (17:00)
== END 2021-07-02 14:20 | disposition hospice, home (50) | DRG 871 ==
LOC: ER 17:15 → EDBD 17:15 → OVERFLOW 22:39 → ICU WEST 06-22 13:30 → TELE-WESTW 06-26 05:02
PROVIDERS: ADMIT Nurse Practitioner Family; ATTEND Internal Medicine
PROC: 0BH17EZ Insertion of Endotracheal Airway into Trachea, Via Natural or Artificial Opening (ICD-10-PCS; principal; 2021-06-21)
PROC: 06HY33Z Insertion of Infusion Device into Lower Vein, Percutaneous Approach (ICD-10-PCS; 2021-06-21)
PROC: 5A1945Z Respiratory Ventilation, 24-96 Consecutive Hours (ICD-10-PCS; 2021-06-21)
DX: A41.51 Sepsis due to Escherichia coli [E. coli] (principal); N17.0 Acute kidney failure with tubular necrosis; J96.01 Acute respiratory failure with hypoxia; E11.10 Type 2 diabetes mellitus with ketoacidosis without coma; R57.0 Cardiogenic shock; R65.21 Severe sepsis with septic shock; J15.211 Pneumonia due to Methicillin susceptible Staphylococcus aureus; G92 Toxic encephalopathy; E87.1 Hypo-osmolality and hyponatremia; N39.0 Urinary tract infection, site not specified; I82.411 Acute embolism and thrombosis of right femoral vein; E44.0 Moderate protein-calorie malnutrition; D68.69 Other thrombophilia; Z20.822 Contact with and (suspected) exposure to COVID-19; Z66 Do not resuscitate; Z51.5 Encounter for palliative care; E11.621 Type 2 diabetes mellitus with foot ulcer; E87.5 Hyperkalemia; I49.5 Sick sinus syndrome; I50.9 Heart failure, unspecified; I48.91 Unspecified atrial fibrillation; F32.9 Major depressive disorder, single episode, unspecified; F41.9 Anxiety disorder, unspecified; L89.619 Pressure ulcer of right heel, unspecified stage; L89.159 Pressure ulcer of sacral region, unspecified stage; L97.519 Non-pressure chronic ulcer of other part of right foot with unspecified severity; L89.629 Pressure ulcer of left heel, unspecified stage; F03.90 Unspecified dementia, unspecified severity, without behavioral disturbance, psychotic disturbance, mood disturbance, and anxiety; Z88.0 Allergy status to penicillin; Z79.899 Other long term (current) drug therapy; I11.0 Hypertensive heart disease with heart failure
CPT/HCPCS: 31500; 36415; 36556; 36600; 70450; 71045; 72040; 80048; 80053; 80202; 80307; 80320; 81001; 82010; 82550; 82565; 82805; 82962; 83036; 83605; 83735; 83880; 84443; 84484; 85025; 85610; 85730; 87040; 87070; 87077; 87081; 87086; 87088; 87186; 87205; 87426; 93005; 93306; 93970; 94002; 94003; 96365; 96366; 96368; 96372; 96375; 96376; 97110; 97163; 97530; 99291; A4618; G0378; J0330; J0461; J0696; J1815; J1885; J2185; J2250; J3490